=== PATIENT | male | born 1965 | race Two or more races ===

== ENCOUNTER 2021-07-25 10:49 | Outpatient (REF) | payer OTHER, SELFPAY ==
[2021-07-25 14:29] LABS: Alanine Aminotransferase 40 U/L (0-40); Albumin Level 4.4 g/dL (3.5-5.0); Alkaline Phosphatase 71 U/L (39-117); Anion Gap 14 (12-20); Aspartate Amino Transferase 22 U/L (5-37); Bilirubin Total 0.4 mg/dL (0.0-1.0); Blood Urea Nitrogen 14 mg/dL (9-16); Calcium 9.3 mg/dL (8.4-10.2); Carbon Dioxide 27 mmol/L (22-29); Chloride 103 mmol/L (96-108); Cholesterol 150 mg/dL; Estimated Glomerular Filt Rate > 60; Glucose Fasting 109 mg/dL (60-99); HDL Cholesterol 35 mg/dL; LDL Cholesterol Calculated 83 mg/dl; Potassium 4.8 mmol/L (3.3-5.1); Sodium 139 mmol/L (135-145); Total Protein 7.2 g/dL (6.5-8.0); Triglycerides 160 mg/dL
[2021-07-25 14:42] LABS: Creatinine Urine 122.22 mg/dL
[2021-07-25 14:52] LABS: Prostate Specific Antigen 1.61 ng/mL (<0.05-4.0); Thyroid Stimulating Hormone 0.85 uIU/mL (0.32-4.0)
[2021-07-26 04:20] LABS: Estimated Average Glucose 163 mg/dL; Hemoglobin A1c % 7.3 %
== END 2021-07-25 10:50 | disposition home or self-care (01) ==
LOC: HO.10HDL 10:49
PROVIDERS: Visit Provider Internal Medicine
DX: E11.9 Type 2 diabetes mellitus without complications (principal); E78.2 Mixed hyperlipidemia; M54.50 Low back pain, unspecified; R14.0 Abdominal distension (gaseous); R53.83 Other fatigue; Z12.5 Encounter for screening for malignant neoplasm of prostate
CPT/HCPCS: 36415; 80053; 80061; 82043; 83036; 84153; 84443

== ENCOUNTER 2022-02-11 09:49 | Outpatient (REF) | payer OTHER, SELFPAY ==
[2022-02-11 10:47] LABS: Estimated Average Glucose 154 mg/dL
[2022-02-11 11:11] LABS: Alanine Aminotransferase 65 U/L (0-40); Albumin Level 4.5 g/dL (3.5-5.0); Alkaline Phosphatase 68 U/L (39-117); Anion Gap 14 (12-20); Aspartate Amino Transferase 27 U/L (5-37); Blood Urea Nitrogen 13 mg/dL (9-16); Calcium 9.6 mg/dL (8.4-10.2); Carbon Dioxide 27 mmol/L (22-29); Chloride 104 mmol/L (96-108); Estimated Glomerular Filt Rate > 60; Glucose Random 113 mg/dL (60-115); Potassium 4.3 mmol/L (3.3-5.1); Sodium 141 mmol/L (135-145); Total Protein 7.1 g/dL (6.5-8.0)
[2022-02-11 11:33] LABS: Bilirubin Total 0.7 mg/dL (0.0-1.0)
== END 2022-02-11 09:50 | disposition home or self-care (01) ==
LOC: HO.LAB 09:49
PROVIDERS: PCP Internal Medicine; Visit Provider Internal Medicine
DX: Z00.00 Encounter for general adult medical examination without abnormal findings (principal); E11.9 Type 2 diabetes mellitus without complications; E78.2 Mixed hyperlipidemia
CPT/HCPCS: 36415; 80053; 83036

== ENCOUNTER 2022-07-12 15:39 | Outpatient (REF) | payer OTHER, SELFPAY ==
[2022-07-12 18:23] LABS: Estimated Average Glucose 217 mg/dL; Hemoglobin A1c % 9.2 %
[2022-07-12 18:32] LABS: Alanine Aminotransferase 32 U/L (0-40); Albumin Level 4.3 g/dL (3.5-5.0); Alkaline Phosphatase 85 U/L (39-117); Anion Gap 14 (12-20); Aspartate Amino Transferase 13 U/L (5-37); Bilirubin Total 0.4 mg/dL (0.0-1.0); Blood Urea Nitrogen 17 mg/dL (9-16); Calcium 9.3 mg/dL (8.4-10.2); Carbon Dioxide 28 mmol/L (22-29); Chloride 104 mmol/L (96-108); Estimated Glomerular Filt Rate > 60; Glucose Random 193 mg/dL (60-115); Potassium 4.6 mmol/L (3.3-5.1); Sodium 141 mmol/L (135-145); Total Protein 6.9 g/dL (6.5-8.0)
[2022-07-12 18:47] LABS: Thyroid Stimulating Hormone 0.79 uIU/mL (0.32-4.0)
== END 2022-07-12 15:40 | disposition home or self-care (01) ==
LOC: HO.LAB 15:39
PROVIDERS: PCP Internal Medicine; Visit Provider Internal Medicine
DX: E11.9 Type 2 diabetes mellitus without complications (principal); I10 Essential (primary) hypertension; R00.0 Tachycardia, unspecified; R74.01 Elevation of levels of liver transaminase levels
CPT/HCPCS: 36415; 80053; 83036; 84443

== ENCOUNTER 2022-11-01 08:10 | Outpatient (REF) | payer OTHER, SELFPAY ==
[2022-11-01 08:22] LABS: MANUAL DIFF FLAG NO
[2022-11-01 09:31] LABS: Basophils Percent Auto 0.6 % (0-2); Eosinophils Absolute Auto 0.1 X10*3/uL (0.0-0.4); Eosinophils Percent Auto 0.9 % (0-4); Hemoglobin 12.6 g/dl (14.0-18.0); Imm Gran Abs Auto 0.01 X10*3/uL (0.00-0.03); Imm Gran Pct Auto 0.2 % (0.0-0.4); Lymphocytes Absolute Auto 2.4 X10*3/uL (1.2-4.9); Lymphocytes Percent Auto 37.9 % (20-40); Mean Corpuscular HGB Conc 30.7 g/dl (31.0-36.0); Mean Corpuscular Hemoglobin 26.9 pg (27.0-33.0); Mean Corpuscular Volume 87.4 fL (80.0-98.0); Mean Platelet Volume 11.2 fL (9.4-12.4); Monocytes Absolute Auto 0.7 X10*3/uL (0.1-1.2); Monocytes Percent Auto 10.6 % (2-11); Neutrophils Absolute Auto 3.2 x10*3/uL (2.0-8.3); Neutrophils Percent Auto 49.8 % (45-73); Platelet Count 206 X10*3/uL (160-400); Red Blood Count 4.69 X10*6/uL (4.60-5.80); White Blood Count 6.3 X10*3/uL (4.8-10.8)
[2022-11-01 09:41] LABS: Estimated Average Glucose 128 mg/dL; Hemoglobin A1c % 6.1 %
[2022-11-01 10:02] LABS: Microalbum/Creatinine Ratio Ur 10.6 ug/mg cr
[2022-11-01 10:15] LABS: Alanine Aminotransferase 25 U/L (0-40); Albumin Level 4.1 g/dL (3.5-5.0); Alkaline Phosphatase 70 U/L (39-117); Anion Gap 11 (12-20); Aspartate Amino Transferase 14 U/L (5-37); Bilirubin Total 0.6 mg/dL (0.0-1.0); Blood Urea Nitrogen 13 mg/dL (9-16); Calcium 9.1 mg/dL (8.4-10.2); Carbon Dioxide 25 mmol/L (22-29); Chloride 110 mmol/L (96-108); Cholesterol 140 mg/dL; Estimated Glomerular Filt Rate > 60; Glucose Random 110 mg/dL (60-115); HDL Cholesterol 32 mg/dL; LDL Cholesterol Calculated 67 mg/dl; Potassium 4.1 mmol/L (3.3-5.1); Sodium 142 mmol/L (135-145); Total Protein 6.9 g/dL (6.5-8.0); Triglycerides 209 mg/dL
[2022-11-01 10:38] LABS: Prostate Specific Antigen Scr 1.49 ng/mL (<0.05-4.0)
== END 2022-11-01 08:11 | disposition home or self-care (01) ==
LOC: HO.LAB 08:10
PROVIDERS: PCP Internal Medicine; Visit Provider Internal Medicine
DX: Z12.5 Encounter for screening for malignant neoplasm of prostate (principal); E11.65 Type 2 diabetes mellitus with hyperglycemia; E78.2 Mixed hyperlipidemia; I10 Essential (primary) hypertension
CPT/HCPCS: 36415; 80053; 80061; 82043; 83036; 84153; 85025

== ENCOUNTER 2025-01-13 09:56 | Outpatient (AMB) | payer OTHER, SELFPAY ==
--- NOTE | 2025-01-13 10:09 | A.OFFVIS_ITS ---
Vital Signs 01/13/25 10:14 Height 5 ft 10 in Weight 250 lb BMI 35.9 Intake Visit Reasons: Left shoulder pain and weakness Intake Note: Babak is a 59 year old male left hand dominant male who presents with complaints of progressively worsening left shoulder pain and weakness. The patient states that he 1st injured his left shoulder when he was 12 years old and suffered a fracture to his left arm. He then fell on his left shoulder when he was 29 years old. Since that time he has had difficulty lifting his left hand above shoulder height. Has failed the last 6 weeks of conservative treatment which has included formal physical therapy, Tylenol, naproxen and a home exercise program. The patient reports weakness when lifting his left hand above shoulder height. Has had injections in the past which gave him minimal relief. His left shoulder pain and weakness for now interfering with his activities of daily living and his ability to sleep well through the night. 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 Physical Exam Vital Signs: BMI result Body Mass Index 35.9 Const Other: Well-nourished well-developed very friendly male awake alert and oriented x3 in no acute distress Extrem Other: Left shoulder examination shows slightly decreased range of motion when compared to his right shoulder, 4+ out of 5 strength with supraspinatus testing, positive impingement signs, tenderness over his acromioclavicular joint, no instability Results Reviewed Results Reviewed: X-rays of the patient's left shoulder show severe acromioclavicular joint narrowing, a type 2 acromion, no acute bony abnormalities Assessment & Plan Assessment & Plan (1) Rotator cuff insufficiency of left shoulder: Code(s): M25.312 - Other instability, left shoulder Category: Medical Plan Mr. Zimmer presents with progressively worsening left shoulder pain and weakness due to impingement syndrome and possible rotator cuff tearing. Thus, I will send the patient for an MRI of his left shoulder for further evaluation. I will see him back after the MRI is completed to discuss the findings and treatment options. Feel free to call me at any time should questions regarding his orthopedic management arise. Thank you very much for asking me to see this very friendly patient. I spent 20 minutes in reviewing the patient's records and imaging studies, seeing the patient and documenting in the medical record. Orders: Orders XR shoulder LT min 2V Today M25.512 - Pain in left shoulder MR shoulder LT wo con 01/14/25 M25.312 - Other instability, left shoulder Coding Level of Care Code New Pt Level 3 (01253) Complex EM visit Add On G2211 Diagnoses Rotator cuff insufficiency of left shoulder M25.312
[2025-01-13 10:14] VITALS: BMI 35.9
--- OUTSIDE RECORDS SUMMARY | 2025-01-13 10:41 | XMS_ITS | Patient Health Record ---
Author Organization [facility] Address [address] [place] [address] Care Team Providers Care Bulk Plant Supervisor Name Role Phone Hilda Duff Primary Care Provider Unavailab Isacc Brownlee Jr Unavailable Reason For Referral No Information Medications Medication SIG (Take, Route, Frequency, Duration) Notes Start Date End Date Status metFORMIN HCl 1000 MG 1 tablet with a me al Orally twice a day Active MiraLax (colon prep) 8.3 ounce ((238) grams mixed with Gatorade or Crystal Light orally begin at 5:00 p.m. the day before the procedure for 1 day 03/05/2019 Active Atorvastatin Calcium 40 MG 1 tablet Oral ly Once a day Active Lisinopril 20 MG 1 tablet Orally Once a day Active Immunizations Vaccine Route Administration Date Status Comme nts Influenza Unknown 03/05/2019 Refused Social History Tobacco Use: Social History Observation Description Date Details (start date - stop date) Former Smoker NA - NA Tobacco Use/Smoking Question Answer Notes Patient is a former smoker How long has it been since you last smoked? > 10 years Alcohol Screen Question Answer Notes Did you have a drink contain ing alcohol in the past year? Yes How often did you have a dri nk containing alcohol in the past year? 2 to 4 times a month (2 points) How many drinks did you have on a typical day when you were drinking in the past year? 1 or 2 drinks (0 point) How often did you have 6 or more drinks on one occasion in the past year? Never (0 point) Points 2 Interpretation Negative Problems Problem Type SNOMED Code ICD Code Onset Dates Problem Status W/U Status Risk Notes Problem 943436399 Colon cancer screening (Z12.11) Active confirmed Problem 519435248 GERD without esophagitis (K21.9) Active confirmed Plan Of Treatment Future Test Test Name Order Date UPPER GI ENDOSCOPY 03/05/2019 COLONOSCOPY 03/05/2019 Insurance Providers Payer Name Payer Address Payer Phone Subscriber Number Group Number Insured Name Patient Relationship to Insured Coverage Start Date Coverage End Date [employer] [place] [address] [address] [place] [address] [id number] Babak Smith Self - patient is the insured Medical (General) History Medical History History ICD Code diabetes mellitus hypertension elevated cholesterol Surgical History Surgery Date(Month/Year)
== END 2025-01-13 10:36 | disposition home or self-care (01) ==
LOC: HO.HOS 09:57
PROVIDERS: PCP Internal Medicine; Visit Provider Orthopaedic Surgery
DX: M25.312 Other instability, left shoulder (principal)
CPT/HCPCS: 99203

== ENCOUNTER → 2025-01-13 09:59 | Outpatient (BNV) | payer OTHER, SELFPAY | PROVIDERS: Visit Provider Radiology Diagnostic Radiology | DX: M25.512 Pain in left shoulder (principal); M25.312 Other instability, left shoulder | CPT/HCPCS: 73030 ==

== ENCOUNTER 2025-01-14 08:12 | Outpatient (REF) | payer OTHER, SELFPAY ==
--- NOTE | ~2025-01-14 | XR_ITS ---
EXAMINATION: XR SHOULDER 2 OR MORE VIEWS LEFT HISTORY: M25.512 - Pain in left shoulder COMPARISON: There are no prior studies available for comparison. FINDINGS: Two views of the left shoulder are submitted. Osseous mineralization is normal. There is no fracture or dislocation. The glenohumeral joint is maintained. There is moderate narrowing of the AC joint. The soft tissues are unremarkable. XR/XR shoulder LT min 2V IMPRESSION: Moderate narrowing of the AC joint. Electronically signed by: Tomas Varela MD 01/13/2025 11:04 AM EDT
--- OUTSIDE RECORDS SUMMARY | 2025-01-15 08:38 | XMS_ITS | Patient Health Record ---
Author Organization [facility] Address [address] [place] [address] Care Team Providers Care Big Data Analytics Lead Name Role Phone Hilda Duff Primary Care [...] Problem Status W/U Status Risk Notes Problem 240407887 Colon cancer screening (Z12.11) Active confirmed Problem 796094194 GERD without esophagitis (K21.9) Active confirmed Plan Of Treatment Future Test Test Name Order Date UPPER GI ENDOSCOPY 03/05/2019 COLONOSCOPY 03/05/2019 Insurance Providers Payer Name Payer Address Payer Phone Subscriber Number Group Number Insured Name Patient Relationship to Insured Coverage Start Date Coverage End Date [employer] [place] [address] [address] [place] [address] [id number] Babak Smith Self - patient is the insured Medical (General) History Medical History History ICD Code diabetes mellitus hypertension elevated cholesterol Surgical History Surgery Date(Month/Year)
== END 2025-01-14 08:13 | disposition home or self-care (01) ==
LOC: HO.HOSX 08:12
PROVIDERS: Visit Provider Orthopaedic Surgery
DX: M25.312 Other instability, left shoulder (principal); M25.512 Pain in left shoulder; Z79.1 Long term (current) use of non-steroidal anti-inflammatories (NSAID); Z79.84 Long term (current) use of oral hypoglycemic drugs; Z79.899 Other long term (current) drug therapy
CPT/HCPCS: 73030

== ENCOUNTER → 2025-02-25 07:55 | Outpatient (BNV) | payer OTHER, SELFPAY | PROVIDERS: PCP Internal Medicine; Visit Provider Radiology Diagnostic Radiology | DX: S46.012A Strain of muscle(s) and tendon(s) of the rotator cuff of left shoulder, initial encounter (principal); M75.82 Other shoulder lesions, left shoulder; S43.432A Superior glenoid labrum lesion of left shoulder, initial encounter | CPT/HCPCS: 73221 ==

== ENCOUNTER 2025-02-25 07:56 | Outpatient (REF) | payer OTHER, SELFPAY ==
--- NOTE | ~2025-02-25 | MR_ITS ---
CLINICAL HISTORY: M25.312 - Other instability, left shoulder MR left shoulder without gadolinium Comparison: DX/SR - XR SHOULDER 2 OR MORE VIEWS LEFT - 01/13/25 09:59 EDT Findings: No full-thickness rotator cuff tears are identified. There is a tiny partial-thickness articular surface tear of the greater tuberosity footplate at the insertion of the infraspinatus tendon. This involves less than 10% of the tendon thickness. Mild tendinopathy of the distal supraspinatus and infraspinatus tendons with peritendinous edema. Teres minor and subscapularis tendons are intact with mild tendinopathy of the distal subscapularis tendon. No tendon retraction or muscle atrophy is seen. This is tear of the anteroinferior labrum extending from the 3 o'clock to 6 o'clock position. Multiloculated paralabral cyst is seen measuring 7 x 4 mm in size. No tear of the superior labrum is identified. The tendon of the long head of the biceps is appropriately positioned within the bicipital groove. There is a type 2 acromion. Moderate degenerative change of the AC joint with edema surrounding the joint. Small amount of fluid within the subacromial/subdeltoid space. IMPRESSION: 1. Shallow partial-thickness articular surface tear of the distal infraspinatus tendon at its insertion upon the greater tuberosity footplate. No full-thickness rotator cuff tears identified. 2. Supraspinatus, infraspinatus, and subscapularis tendinopathy. 3. Anteroinferior labral tear with adjacent paralabral cysts. No bony Bankart fracture or hill-Sachs lesion identified. 4. AC joint DJD with subacromial/subdeltoid bursitis. This document has been electronically signed by: Sami Thomson MD on 02/26/2025 01:57:10
--- OUTSIDE RECORDS SUMMARY | 2025-02-25 08:03 | XMS_ITS | Patient Health Record ---
Author Organization [facility] Address [address] [place] [address] Care Team Providers Care Unit Assembler Name Role Phone Hilda Duff Primary Care Provider Unavailab Isacc Brownlee Jr Unavailable [phone] Reason For Referral No Information Medications Medication [...] Problem Status W/U Status Risk Notes Problem 101042982 Colon cancer screening (Z12.11) Active confirmed Problem 902438219 GERD without esophagitis (K21.9) Active confirmed Plan Of Treatment Future Test Test Name Order Date UPPER GI ENDOSCOPY 03/05/2019 COLONOSCOPY 03/05/2019 Next Appt Details Provider Name:Isacc Chauncey coyne , 06/15/2025 10:00:00 AM, [address] [place] [address], [address], [place], [address], Insurance Providers Payer Name Payer Address Payer Phone Subscriber Number Group Number Insured Name Patient Relationship to Insured Coverage Start Date Coverage End Date [employer] [place] [address] [address] [place] [address] [id number] Babak Smith Self - patient is the insured Medical (General) History Medical History History ICD Code diabetes mellitus hypertension elevated cholesterol Surgical History Surgery Date(Month/Year)
== END 2025-02-25 07:57 | disposition home or self-care (01) ==
LOC: HO.MRI 07:56
PROVIDERS: PCP Internal Medicine; Visit Provider Orthopaedic Surgery
DX: M25.312 Other instability, left shoulder (principal)
CPT/HCPCS: 73221

== ENCOUNTER 2025-03-04 10:31 | Outpatient (AMB) | payer OTHER, SELFPAY ==
--- NOTE | 2025-03-04 10:32 | MHC.OFFVIS ---
Vital Signs 03/04/25 10:37 Height 5 ft 10 in Weight 245 lb BMI 35.2 Intake Visit Reasons: OV- Left shoulder MRI review., Right shoulder pain and weakness Intake Note: Babak is a 59 year old male who presents with complaints of progressively worsening left shoulder pain and stiffness as well as right shoulder pain and weakness. He describes his pains as sharp in nature. His symptoms have gotten worse over the last few years in spite of continued non operative treatments. Has failed the last 6 weeks of conservative treatment which has included Tylenol, ibuprofen, physical therapy exercises and a home exercise program. He reports difficulty lifting both of his hands above shoulder height. 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 Physical Exam Vital Signs: BMI result Body Mass Index 35.2 Const Other: Well-nourished well-developed very friendly male awake alert and oriented x3 in no acute distress Extrem Other: Bilateral shoulder examination shows forward flexion to 130 degrees, external rotation to 40 degrees, internal rotation to level L2, 4+ out of 5 strength with supraspinatus testing, positive impingement signs, tenderness over his acromioclavicular joint, no instability Results Reviewed Results Reviewed: MRI of the patient's left shoulder show severe acromioclavicular joint narrowing, a type 3 acromion, signal change within the supraspinatus tendon most likely due to adhesive capsulitis Assessment & Plan Assessment & Plan (1) Rotator cuff insufficiency of right shoulder: Code(s): M25.311 - Other instability, right shoulder Category: Medical (2) Rotator cuff insufficiency of left shoulder: Code(s): M25.312 - Other instability, left shoulder Category: Medical Plan Mr. Zimmer presents with left shoulder pain and stiffness due to impingement syndrome, acromioclavicular joint arthritis and adhesive capsulitis. I had a lengthy discussion with the patient regarding the treatment options. At this point he has failed continued non operative treatments. The risks and benefits of left shoulder surgery were discussed at length with the patient. The patient wishes to proceed with surgery. Surgery will involve left shoulder arthroscopic distal clavicle excision, left shoulder arthroscopic acromioplasty, left shoulder arthroscopic capsular release and left shoulder manipulation under anesthesia. I will also send the patient for an MRI of his right shoulder for further evaluation of his rotator cuff tendons. I will see him back once the MRI is completed to discuss the findings and treatment options. Feel free to call me at any time should questions regarding his orthopedic management arise. I spent 21 minutes in reviewing the patient's records and imaging studies, seeing the patient and documenting in the medical record. Orders: Orders MR shoulder RT wo con 03/05/25 M25.311 - Other instability, right shoulder Coding Level of Care Code Est Pt Level 3 (28832) Complex EM visit Add On G2211 Diagnoses Rotator cuff insufficiency of right shoulder M25.311 Rotator cuff insufficiency of left shoulder M25.312
[2025-03-04 10:37] VITALS: BMI 35.2
--- OUTSIDE RECORDS SUMMARY | 2025-03-04 12:29 | XMS_ITS | Patient Health Record ---
Author Organization [facility] Address [address] [place] [address] Care Team Providers Care Staff Weapons Officer Name Role Phone Hilda Duff Primary Care [...] at 5:00 p.m. the day before the procedure; Duration: 1 day 03/05/2019 Active Atorvastatin Calcium 40 [...] Problem Status W/U Status Risk Notes Problem Colon cancer screening (039277429) Colon cancer screening (Z12.11) Active confirmed Problem Gastroesophageal reflux disease (742836082) GERD without esophagitis (K21.9) Active confirmed Plan Of Treatment Future Test Test Name Order Date UPPER GI ENDOSCOPY 03/05/2019 COLONOSCOPY 03/05/2019 Next Appt Details Provider Name:Isacc Chauncey cyone Jr, 06/15/2025 10:00:00 AM, [address] [place] [address], [address], [place], [address], Insurance Providers Payer Name Payer Address Payer Phone Subscriber Number Group Number Insured Name Patient Relationship to Insured Coverage Start Date Coverage End Date [employer] [place] [address] [address] [place] [address] [id number] Babak Smith Self - patient is the insured Medical (General) History Medical History History ICD Code diabetes mellitus hypertension elevated cholesterol Surgical History Surgery Date(Month/Year)
== END 2025-03-04 11:03 | disposition home or self-care (01) ==
LOC: HO.HOS 10:31
PROVIDERS: PCP Internal Medicine; Visit Provider Orthopaedic Surgery
DX: M25.311 Other instability, right shoulder (principal); M25.312 Other instability, left shoulder
CPT/HCPCS: 99214

== ENCOUNTER → 2025-03-23 08:04 | Outpatient (BNV) | payer OTHER, SELFPAY | PROVIDERS: PCP Internal Medicine; Visit Provider Radiology Diagnostic Radiology | DX: M75.111 Incomplete rotator cuff tear or rupture of right shoulder, not specified as traumatic (principal); M75.31 Calcific tendinitis of right shoulder; M75.51 Bursitis of right shoulder; M19.011 Primary osteoarthritis, right shoulder | CPT/HCPCS: 73221 ==

== ENCOUNTER 2025-03-23 08:11 | Outpatient (REF) | payer OTHER, SELFPAY ==
--- NOTE | ~2025-03-23 | MR_ITS ---
EXAMINATION: MRI Shoulder without contrast, right TECHNIQUE: Multiplanar multisequence MR imaging through an upper extremity joint without contrast. INDICATION: Right shoulder pain for one month, no trauma PRIOR: None FINDINGS: Rotator Cuff: There is a deep tear in anterior supraspinatus tendon at the footprint involving more than half the tendon thickness extending to the bursal surface. There is a second undersurface tear of anterior infraspinatus tendon involving more than half the tendon thickness. Infraspinatus tendon is thickened with mildly increased signal. There is a tear of subscapularis tendon near the footprint extending to the bursal surface involving more than half the tendon thickness. Labrum: There is indistinct amorphous intermediate signal superior labrum consistent with degeneration or remote tear. Long biceps tendon: The long biceps tendon is intact and not displaced from the groove. Acromioclavicular joint: There is moderate degenerative change with osteophytes and capsular thickening. There is a joint effusion. There is a subacromial spur. Acromial morphology is flat, type I. There is mildly increased fluid in the subacromial subdeltoid bursa. Axillary pouch: The axillary pouch is intact. Articular cartilage: There are no articular cartilage defects. Bones/Marrow: There are no significant marrow replacing lesions. Soft tissues: There is no muscle atrophy, edema, or fatty streaking. MR/MR shoulder RT wo con IMPRESSION: There is a deep bursal sided tear of anterior supraspinatus tendon at the footprint. There is a deep undersurface tear of anterior infraspinatus tendon extending to the articular surface. There is a deep bursal sided tear of subscapularis tendon within 1 cm of the footprint. There is supraspinatus tendinopathy There is subacromial spur. There is subacromial subdeltoid bursal effusion. There is moderate AC joint arthropathy. Electronically signed by: Rafael Joseph MD 03/23/2025 09:44 AM EST
--- OUTSIDE RECORDS SUMMARY | 2025-03-23 08:26 | XMS_ITS | Patient Health Record ---
Author Organization [facility] Address [address] [place] [address] Care Team Providers Care Metal Welder Name Role Phone Hilda Duff Primary Care [...] Status Risk Notes Problem Colon cancer screening (172782909) Colon cancer screening (Z12.11) Active confirmed Problem Gastroesophageal reflux disease (623926842) GERD without esophagitis (K21.9) Active confirmed Plan Of Treatment Future Test Test Name Order Date UPPER GI ENDOSCOPY 03/05/2019 COLONOSCOPY 03/05/2019 Next Appt Details Provider Name:Isacc Chauncey coyne Jr, 06/15/2025 10:00:00 AM, [address] [place] [address], [address], [place], [address], Insurance Providers Payer Name Payer Address Payer Phone Subscriber Number Group Number Insured Name Patient Relationship to Insured Coverage Start Date Coverage End Date [employer] [place] [address] [address] [place] [address] [id number] Babak Smith Self - patient is the insured Medical (General) History Medical History History ICD Code diabetes mellitus hypertension elevated cholesterol Surgical History Surgery Date(Month/Year)
== END 2025-03-23 08:12 | disposition home or self-care (01) ==
LOC: HO.MRI 08:11
PROVIDERS: PCP Internal Medicine; Visit Provider Orthopaedic Surgery
DX: M25.311 Other instability, right shoulder (principal)
CPT/HCPCS: 73221

== ENCOUNTER 2025-04-01 12:18 | Outpatient (REF) | payer OTHER, SELFPAY ==
[2025-04-01 13:37] LABS: Alanine Aminotransferase 32 U/L (0-40); Albumin Level 5.0 g/dL (3.5-5.0); Alkaline Phosphatase 83 U/L (39-117); Anion Gap 13 (12-20); Aspartate Amino Transferase 24 U/L (5-37); Blood Urea Nitrogen 13 mg/dL (9-16); Calcium 9.7 mg/dL (8.4-10.2); Carbon Dioxide 26 mmol/L (22-29); Chloride 105 mmol/L (96-108); Cholesterol 145 mg/dL (<200); Estimated Glomerular Filt Rate > 60; HDL Cholesterol 34 mg/dL (>40); Potassium 4.1 mmol/L (3.3-5.1); Sodium 140 mmol/L (135-145); Total Protein 7.8 g/dL (6.5-8.0); Triglycerides 165 mg/dL (<150)
[2025-04-01 14:04] LABS: Hemoglobin A1C 151.8834 umol/L
[2025-04-01 14:20] LABS: Microalbum/Creatinine Ratio Ur 30.4 ug/mg cr (<30)
--- OUTSIDE RECORDS SUMMARY | 2025-04-01 15:01 | XMS_ITS | Patient Health Record ---
Author Organization [facility] Address [address] [place] [address] Care Team Providers Care Ground Host/Hostess Name Role Phone Hilda Duff Primary Care [...] Status Risk Notes Problem Colon cancer screening (362564739) Colon cancer screening (Z12.11) Active confirmed Problem Gastroesophageal reflux disease (022455586) GERD without esophagitis (K21.9) Active confirmed Plan Of Treatment Future Test Test Name Order Date UPPER GI ENDOSCOPY 03/05/2019 COLONOSCOPY 03/05/2019 Next Appt Details Provider Name:Isacc Chauncey coyne Jr, 06/15/2025 10:00:00 AM, [address] [place] [address], [address], [place], [address], Insurance Providers Payer Name Payer Address Payer Phone Subscriber Number Group Number Insured Name Patient Relationship to Insured Coverage Start Date Coverage End Date [employer] [place] [address] [address] [place] [address] [id number] Babak Smith Self - patient is the insured Medical (General) History Medical History History ICD Code diabetes mellitus hypertension elevated cholesterol Surgical History Surgery Date(Month/Year)
== END 2025-04-01 12:19 | disposition home or self-care (01) ==
LOC: HO.10HDL 12:18
PROVIDERS: Visit Provider Internal Medicine
DX: Z12.5 Encounter for screening for malignant neoplasm of prostate (principal); E11.9 Type 2 diabetes mellitus without complications; I10 Essential (primary) hypertension; N40.0 Benign prostatic hyperplasia without lower urinary tract symptoms; E78.00 Pure hypercholesterolemia, unspecified; Z86.0101 Personal history of adenomatous and serrated colon polyps
CPT/HCPCS: 36415; 80053; 80061; 82043; 82570; 83036; 84153

== ENCOUNTER 2025-04-15 08:46 | Outpatient (AMB) | payer OTHER, SELFPAY ==
--- NOTE | 2025-04-15 08:50 | MHC.OFFVIS ---
Vital Signs 04/15/25 08:57 Height 5 ft 10 in Weight 247 lb BMI 35.4 BP 145/85 H Blood Pressure Location Lt brachial Position Sitting Pulse 56 Pulse Source Pulse Oximeter Pulse Oximetry (%) 96 Intake Visit Reasons: Left shoulder pain and stiffness Intake Note: Mr. Zimmer is a 59-year-old male who presents with progressively worsening bilateral shoulder pains and stiffness, left greater than right. The patient describes his left shoulder pain as sharp and severe in nature. His pain has gotten worse over the last few years in spite of continued non operative treatments. He has tried Tylenol, anti-inflammatory medicines and physical therapy exercises which gave him minimal relief. The patient reports difficulty lifting his left hand above shoulder height. 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 Physical Exam Vital Signs: Last Vital Signs Pulse 56 04/15/25 08:57 BP 145/85 H 04/15/25 08:57 Pulse Ox 96 04/15/25 08:57 BMI result Body Mass Index 35.4 Const Other: Well-nourished well-developed very friendly male awake alert and oriented x3 in no acute distress Extrem Other: Bilateral shoulder examination shows pain with range of motion, positive impingement signs, 4+ out of 5 strength with supraspinatus testing, tenderness over his acromioclavicular joint, no instability Results Reviewed Results Reviewed: MRI of the patient's bilateral shoulder show severe acromioclavicular joint narrowing, type 2 acromion, signal change within the supraspinatus tendons most likely due to adhesive capsulitis Assessment & Plan Assessment & Plan (1) Impingement syndrome of left shoulder: Code(s): M75.42 - Impingement syndrome of left shoulder Category: Medical Plan Mr. Zimmer presents with bilateral shoulder pains and stiffness, left greater than right, due to impingement syndrome, acromioclavicular joint arthritis and adhesive capsulitis. I had a lengthy discussion with the patient regarding the treatment options. At this point he has failed continued non operative treatments. The risks and benefits of left shoulder arthroscopic surgery were discussed at length with the patient. The patient wishes to proceed with surgery. Surgery will involve left shoulder arthroscopic distal clavicle excision, left shoulder arthroscopic acromioplasty, left shoulder arthroscopic capsular release and left shoulder manipulation. If the patient's right shoulder symptoms do become worse than his left at the time of surgery we could certainly proceed with right shoulder surgery 1st. The patient will be given a prescription for pain medicine at the time of his surgery. He will follow up as instructed. Feel free to call me at any time should questions regarding his orthopedic management arise. I spent 20 minutes in reviewing the patient's records and imaging studies, seeing the patient and documenting in the medical record. Coding Level of Care Code Est Pt Level 3 (10799) Complex visit Add On G2211 Diagnoses Impingement syndrome of left shoulder M75.42
[2025-04-15 08:57] VITALS: BP 145/85; PULSE 56; O2SAT 96; BMI 35.4
--- OUTSIDE RECORDS SUMMARY | 2025-04-15 09:07 | XMS_ITS | Patient Health Record ---
Author Organization [facility] Address [address] [place] [address] Care Team Providers Care Coordinator Of Online Programs Name Role Phone Hilda Duff Primary Care Provider Unavailab Isacc Brownlee Jr Unavailable Reason For Referral No Information Medications Medication SIG (Take, Route, Frequency, Duration) Notes Start Date End Date Status metFORMIN HCl 1000 MG Tablet 1 tablet with a meal Orally twice a day Active MiraLax (colon prep) 8.3 ounce ((238) grams mixed with Gatorade or Crystal Light orally begin at 5:00 p.m. the day before the procedure; Duration: 1 day 03/05/2019 Active Atorvastatin Calcium 40 MG Tablet 1 tablet Orally Once a day Active Lisinopril 20 MG Tablet 1 tablet Orally Once a day Active Immunizations Vaccine Route Administration Date Status Comme nts Influenza Unknown 03/05/2019 Refused Social History Tobacco Use: Social History Observation Description Date Details (start date - stop date) Former Smoker NA - NA Social History Drugs/Alcohol: Social Info Question Answer Notes Alcohol Screen Did you have a drink containing alcohol in the past year? Yes How often did you have a drink containing alcohol in the past year? 2 to 4 times a month (2 points) How many drinks did you have on a typical day when you were drinking in the past year? 1 or 2 drinks (0 point) How often did you have 6 or more drinks on one occasion in the past year? Never (0 point) Points 2 Interpretation Negative Tobacco Use: Social Info Question Answer Notes Tobacco Use/Smoking Patient is a former smoker How long has it been since you last smoked? 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 Problems Problem Type SNOMED Code ICD Code Onset Dates Problem Status W/U Status Risk Notes Problem Colon cancer screening (096243177) Colon cancer screening (Z12.11) Active confirmed Problem Gastroesophageal reflux disease (969507392) GERD without esophagitis (K21.9) Active confirmed Plan Of Treatment Future Test Test Name Order Date UPPER GI ENDOSCOPY 03/05/2019 COLONOSCOPY 03/05/2019 Next Appt Details Provider Name:Isacc coyne , 06/15/2025 10:00:00 AM, [address] [place] [address], [address], [place], [address], Insurance Providers Payer Name Payer Address Payer Phone Subscriber Number Group Number Insured Name Patient Relationship to Insured Coverage Start Date Coverage End Date [employer] [place] [address] [address] [place] [address] [id number] Babak Smith Self - patient is the insured Medical (General) History Medical History History ICD Code diabetes mellitus hypertension elevated cholesterol Surgical History Surgery Date(Month/Year)
== END 2025-04-15 09:06 | disposition home or self-care (01) ==
LOC: HO.HOS 08:46
PROVIDERS: PCP Internal Medicine; Visit Provider Orthopaedic Surgery
DX: M75.42 Impingement syndrome of left shoulder (principal)
CPT/HCPCS: 99213

== ENCOUNTER 2025-05-01 06:52 | Day surgery (SDC) | payer OTHER, SELFPAY ==
[2025-04-20 10:10] VITALS: BMI 35.2
[2025-05-01] VITALS (11 sets, daily range): BP systolic 110–147; BP diastolic 72–89; PULSE 72–97; RESP 10–18; TEMP 36.1–36.4; O2SAT 95–98
[2025-05-01 07:35] LABS: Glucose, Whole Blood 149 mg/dL (60-115)
[2025-05-01] MEDS: Lactated Ringers 1,000 ML 100 ML IVCONT (07:46)
--- NOTE | 2025-05-01 08:40 | HO.ANESPROP2 ---
Documented by User: Chanelle Calabrese NP 04/20/25 11:35 HPI - Anesthesia Eval Consult details Narrative: 59 yr old male for left Shoulder Arthroscopy,distal clavicle excision,acromioplast,capsular release,manipulation scheduled 05/01/25, PAT done by RN via phone. PCP medical clearance visit 04/01/25: RCRI score is 0 giving pt 0.5% risk for major cardiac event perioperatively. JUAN MIGUEL on CPAP Type 2 DM: A1C 6.9% 09/2024 PMFSH Active Problems Active Problems: All Active Problems Impingement syndrome of left shoulder (Acute) Rotator cuff insufficiency of right shoulder (Acute) Rotator cuff insufficiency of left shoulder (Acute) Left shoulder pain (Acute) Past Medical History Medical History (Updated 04/20/25 @ 10:39 by Char Anaya RN) GERD (gastroesophageal reflux disease) JUAN MIGUEL (obstructive sleep apnea) Diabetes Elevated cholesterol HTN (hypertension) Left shoulder pain Surgical History Surgical History (Updated 04/20/25 @ 10:03 by Char Anaya RN) History of esophagogastroduodenoscopy (EGD) H/O colonoscopy Social History Social History Alcohol intake: current Alcohol intake frequency: holidays/special occasions only Patient Tobacco Use Status: Never used Tobacco Use of substances other than those prescribed or required for medical reasons: No Have you been hit, kicked, punched, or otherwise hurt by someone within the past year? 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 Allergies Allergy/AdvReac Type Severity Reaction Status Date / Time No Known Allergies (No Known Allergy Verified 04/15/25 08:50 Allergies*) Home Medications ?Medication ?Instructions ?Recorded ?Confirmed ?Last Taken ?Type atorvastatin 40 mg tablet 40 mg PO BEDTIME 01/13/25 04/20/25 Unknown History lisinopril 20 mg tablet 20 mg PO BEDTIME 01/13/25 04/20/25 Unknown History metformin 1,000 mg tablet 1,000 mg PO QPM 01/13/25 04/20/25 Unknown History metoprolol succinate 50 mg 50 mg PO BEDTIME 01/13/25 04/20/25 Unknown History tablet,extended release 24 hr Exam Height,Weight and Vital Signs: Height 5 ft 10 in Weight 111.13 kg Pertinent Lab Results Pertinent Lab Results: Laboratory Tests 11/01/22 04/01/25 08:17 12:26 WBC 6.3 RBC 4.69 Hgb 12.6 L Hct 41.0 L Plt Count 206 Sodium 140 Potassium 4.1 Chloride 105 BUN 13 Creatinine 0.95 Documented by User: Cristiane Queen, DO 05/01/25 09:43 [facility] Past Medical History Medical History (Updated 04/20/25 @ 10:39 by Char Anaya RN) GERD (gastroesophageal reflux disease) JUAN MIGUEL (obstructive sleep apnea) Diabetes Elevated cholesterol HTN (hypertension) Left shoulder pain Family History Family history of problems with anesthesia: No Surgical History Surgical History (Updated 04/20/25 @ 10:03 by Char Anaya RN) History of esophagogastroduodenoscopy (EGD) H/O colonoscopy History of Problems with Anesthesia: No Social History Social History Alcohol intake: current Alcohol intake frequency: holidays/special occasions only Patient Tobacco Use Status: Never used Tobacco Use of substances other than those prescribed or required for medical reasons: No Have you been hit, kicked, punched, or otherwise hurt by someone within the past year? 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 Allergies Allergy/AdvReac Type Severity Reaction Status Date / Time No Known Allergies (No Known Allergy Verified 04/15/25 08:50 Allergies*) Home Medications ?Medication ?Instructions ?Recorded ?Confirmed ?Last Taken ?Type atorvastatin 40 mg tablet 40 mg PO BEDTIME 01/13/25 04/20/25 Unknown History lisinopril 20 mg tablet 20 mg PO BEDTIME 01/13/25 04/20/25 Unknown History metformin 1,000 mg tablet 1,000 mg PO QPM 01/13/25 04/20/25 Unknown History metoprolol succinate 50 mg 50 mg PO BEDTIME 01/13/25 04/20/25 Unknown History tablet,extended release 24 hr Exam Exam Date and Time: 05/01/25 0840 Height,Weight and Vital Signs: Height 5 ft 10 in Weight 111.13 kg Vital Signs Temperature 97.0 F 05/01/25 07:18 Pulse Rate 72 05/01/25 07:18 Respiratory Rate 16 05/01/25 07:18 Blood Pressure 131/76 05/01/25 07:18 Pulse Oximetry 95 05/01/25 07:18 Oxygen Delivery Method Room Air 05/01/25 07:18 Temperature 97.0 F 05/01/25 07:18 Pulse Rate 72 05/01/25 07:18 Respiratory Rate 16 05/01/25 07:18 Blood Pressure 131/76 05/01/25 07:18 Pulse Oximetry 95 05/01/25 07:18 Oxygen Delivery Method Room Air 05/01/25 07:18 Airway Mallampati Class: I (large neck circumference but good mouth opening) TM Dist: <=3cm Neck ROM: Full Loose/Missing/Broken Teeth: No (patient denies any loose or broken teeth) Heart: S1S2 Lungs: CTAB Assessment and Plan Assessment Anesthesia Assessment: Anesthesia Plan Discussed and Chart Reviewed Final Anesthetic Review Family History of Problems with Anesthesia: No History of Problems with Anesthesia: No NPO: Yes ASA Class: II Final Preanesthetic Review: No Changes in Pt Med Stat, Meds/Allgs Chart Reviewed, Consent Obtained/Reviewed and Anes Risks/Benef Reviewed Patient Risk: Low Procedure Risk: Intermediate Anesthetic Plan Anesthetic Plan: GA, Regional Block (left brachial plexus block) and Agree w/ Assess. and Plan Disposition: Standard PACU
--- NOTE | 2025-05-01 11:08 | P.BOP_ITS ---
Brief Operative Note Date of Service: 05/01/25 Pre-op diagnosis: Left shoulder impingement syndrome, left shoulder acromioclavicular joint arthritis, left shoulder adhesive capsulitis Post-op diagnosis: same Procedure: Left shoulder arthroscopic distal clavicle excision, left shoulder arthroscopic acromioplasty, left shoulder arthroscopic anterior capsular release, left shoulder manipulation under anesthesia Implants: None Surgeon: Madhav Boyle MD Anesthesia: GETA and regional Was an Sales Commissions Analyst used for this Procedure?: No Estimated blood loss (mL): 10 Pathology: none sent Condition: stable Disposition: PACU
--- NOTE | 2025-05-01 11:09 | P.OP_ITS ---
Operative Note Operative Note Date of Service: 05/01/25 Narrative: After the patient was identified as Babak Zimmer and his left shoulder was initialed by myself the patient was brought to the holding area where a left shoulder interscalene regional block was performed by the anesthesiologist in routine fashion. The patient was then brought to the operating room where general anesthesia was induced by the anesthesiologist in routine fashion. The patient was given 2 g of IV Ancef preoperatively for infection prophylaxis. Examination under anesthesia of the patient's left shoulder showed decreased range of motion when compared to the right shoulder. The patient's left shoulde r had forward flexion to 130 degrees compared to 170 degrees, external rotation to 30 degrees compared to 60 degrees, and internal rotation to 40 degrees compared to 50 degrees. The patient was gently positioned in the beach chair position with all bony prominences well padded. The patient's left shoulder region and upper extremity were prepped and draped in sterile fashion. A formal time-out was completed. A #11 scalpel blade was used to make a posterior portal 2 cm inferior and 1 cm medial to the posterolateral corner of the acromion. Blunt trocar technique was used to enter the glenohumeral joint in routine fashion. An anterior portal was made just lateral to the coracoid process after proper positioning was confirmed using a spinal needle. Diagnostic arthroscopy showed minimal degenerative changes of the glenoid and humeral head articular surfaces. There was no evidence of rotator cuff tearing. There was no evidence of injury to the biceps tendon or its insertion onto the glenoid. There was inflammation of the anterior joint capsule consistent with adhesive capsulitis. The ArthroCare Wand was then used to perform an anterior capsular release between the inferior border of the biceps tendon and the superior border of the subscapularis tendon. The arthroscope was then placed from the posterior portal into the subacromial space. A lateral portal was made 2 fingerbreadths lateral to the anterior lateral corner of the acromion. The ArthroCare Wand was used to ablate soft tissues along the undersurface of the acromion as well as to excise the coracoacromial ligament. There was a sharp spur along the undersurface of the acromion which was removed using the hooded bur. The arthroscope was then placed into the lateral portal and the acromioplasty was completed with the bur in the posterior portal using the posterior aspect of the acromion as a cutting block. The ArthroCare Wand was then brought in through the anterior portal and was used to ablate soft tissues along the acromioclavicular joint and distal clavicle. The posterior and superior ligamentous structures were left intact. A distal clavicle excision of 8 mm was performed using the hooded bur. Any remaining bursal tissue was removed using the arthroscopic shaver. The subacromial space was irrigated and then drained. All arthroscopic instruments were removed. A gentle manipulation under anesthesia was then performed. Full passive range of motion was easily attained. The 3 portals were closed with 3-0 nylon interrupted suture. The subacromial space was injected with Marcaine. D ry sterile dressing was placed over all incisions. The patient's left upper extremity was placed into a sling. The patient was awoken and extubated in the operating room. The patient was transferred to the recovery room in stable condition.
== END 2025-05-01 12:40 | disposition home or self-care (01) ==
PROVIDERS: PCP Internal Medicine; Visit Provider Orthopaedic Surgery
PROC: (CPT 29805; principal; 2025-05-01 09:00)
DX: M75.42 Impingement syndrome of left shoulder (principal); M75.02 Adhesive capsulitis of left shoulder; M25.512 Pain in left shoulder; M25.612 Stiffness of left shoulder, not elsewhere classified; M19.012 Primary osteoarthritis, left shoulder; I10 Essential (primary) hypertension; G47.33 Obstructive sleep apnea (adult) (pediatric); Z99.89 Dependence on other enabling machines and devices; E11.9 Type 2 diabetes mellitus without complications; E78.5 Hyperlipidemia, unspecified; Z79.84 Long term (current) use of oral hypoglycemic drugs; Z79.899 Other long term (current) drug therapy; Z79.1 Long term (current) use of non-steroidal anti-inflammatories (NSAID)
CPT/HCPCS: 29824; 29825; 29826; 82947; J0131; J0165; J0690; J0696; J1100; J1920; J2003; J2250; J2405; J2704; J2795; J3010

== ENCOUNTER → 2025-05-01 06:52 | Outpatient (BNV) | payer OTHER, SELFPAY | PROVIDERS: PCP Internal Medicine; Visit Provider Orthopaedic Surgery | DX: M75.42 Impingement syndrome of left shoulder (principal); M19.012 Primary osteoarthritis, left shoulder; M75.02 Adhesive capsulitis of left shoulder | CPT/HCPCS: 29824; 29826 ==

== ENCOUNTER 2025-05-13 08:20 | Outpatient (AMB) | payer OTHER, SELFPAY ==
--- OUTSIDE RECORDS SUMMARY | 2025-05-13 08:24 | XMS_ITS | Patient Health Record ---
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 Problems Problem Type SNOMED Code ICD Code Onset Dates Problem Status W/U Status Risk Notes Problem Colon cancer screening (402531443) Colon cancer screening (Z12.11) Active confirmed Problem Gastroesophageal reflux disease (744024076) GERD without esophagitis (K21.9) Active confirmed Plan Of Treatment Future Test Test Name Order Date UPPER GI ENDOSCOPY 03/05/2019 COLONOSCOPY 03/05/2019 Next Appt Details Provider Name:Isacc coyne , 06/15/2025 10:00:00 AM, [address] [place] [address], [address], [place], [address], Insurance Providers Payer Name Payer Address Payer Phone Subscriber Number Group Number Insured Name Patient Relationship to Insured Coverage Start Date Coverage End Date [employer] [place] [address] [address] [place] [address] [id number] Babak Smith Self - patient is the insured Medical (General) History Medical History History ICD Code diabetes mellitus hypertension elevated cholesterol Surgical History Surgery Date(Month/Year)
--- NOTE | 2025-05-13 08:25 | MHC.OFFVIS ---
Vital Signs 05/13/25 08:29 Height 5 ft 10 in Weight 245 lb BMI 35.2 Intake Visit Reasons: PO-Lt Shld 05/01/25 Intake Note: Babak is a 59 year old male who presents with complaints of mild to moderate discomfort in his left shoulder after undergoing left shoulder arthroscopic surgery on 05/01/2025. He has been taking oxycodone which gives him fairly good relief. He continues with his home stretching program. Allergies No Known Allergies (No Known Allergies*) Allergy (Verified 04/15/25 08:50) Medication List - Last Reconciled 05/13/25 by Madhav Boyle MD atorvastatin 40 mg PO BEDTIME lisinopril 20 mg PO BEDTIME metformin 1,000 mg PO QPM metoprolol succinate ER 50 mg PO BEDTIME oxycodone 10 mg (2 x 5 mg) PO Q4H PRN PFSH Medical History (Updated 04/20/25 @ 10:39 by Char Anaya RN) GERD (gastroesophageal reflux disease) JUAN MIGUEL (obstructive sleep apnea) Diabetes Elevated cholesterol HTN (hypertension) Left shoulder pain Surgical History (Updated 04/20/25 @ 10:03 by Char Anaya RN) History of esophagogastroduodenoscopy (EGD) H/O colonoscopy Social History Are you a primary resident care assistant to a significant other at home: No Do you presently have visiting nurse or other home services: No Alcohol intake: current Alcohol intake frequency: holidays/special occasions only Comment: tolerable Patient Tobacco Use Status: Never used Tobacco Current occupational status: employed 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 Zimmer is doing well after undergoing left shoulder surgery on 05/01/2025. His sutures were removed and Steri-Strips placed over his incisions. He will continue with his home stretching program. I will clear him to work once his range of motion, strength and pain have improved. He will contact me prior to his follow-up appointment in 6 weeks should any questions or concerns arise. Feel free to call me at any time should questions regarding his orthopedic management arise. Medications: Changed From oxycodone Partial Fill upon patient request. Take 1-2 tabs every 4 hours as needed for pain following your shoulder surgery. 10 mg (2 x 5 mg) PO Q4H PRN 40 tabs 0RF pain To oxycodone Partial Fill upon patient request. 5 mg PO Q4H PRN 35 tabs 0RF pain Coding Level of Care Code Global (91783) Diagnoses Left shoulder pain M25.512
[2025-05-13 08:29] VITALS: BMI 35.2
== END 2025-05-13 08:39 | disposition home or self-care (01) ==
LOC: HO.HOS 08:21
PROVIDERS: PCP Internal Medicine; Visit Provider Orthopaedic Surgery
DX: M25.512 Pain in left shoulder (principal)
CPT/HCPCS: 99024